=== PATIENT | female | born 1970 | race African-American/Black ===

== ENCOUNTER 2017-01-31 14:32 | Emergency (ER) | payer OTHER, MEDICAID ==
[~2017-01-31] VITALS: Ht 165.1 cm; Wt 60.0 kg
[2017-01-31] MEDS ORDERED: HYDR-4134 PO (14:42)
[2017-01-31] MEDS ORDERED: CARV6.2548 PO (14:42)
[2017-01-31] MEDS ORDERED: FURO80TA3 PO (14:42)
[2017-01-31] MEDS ORDERED: MORP15TA67 PO (14:42)
[2017-01-31] MEDS ORDERED: METO-293 PO (14:42)
[2017-01-31] MEDS ORDERED: DIPHENHYDRAMINE 50MG/ML VIAL IV ONE (16:00)
[2017-01-31] MEDS ORDERED: SODIUM CHLORIDE 0.9% 500 ML IV ONE (16:00)
[2017-01-31] MEDS ORDERED: METOCLOPRAMIDE HCL 10MG/2ML VIAL IV ONE (16:00)
[2017-01-31] MEDS ORDERED: MORPHINE SULFATE 4 MG/ML CPJ (NOT FOR IM USE) IV ONE ×2 (16:00→19:45)
[2017-01-31 16:04] LABS: CHLORIDE 105 mEq/L (98-107)
[2017-01-31 16:05] LABS: BASOPHILS % 0.9 % (0.0-2.0); HEMOGLOBIN. 13.6 g/dL (12.0-16.0); LYMPHOCYTES % 18.4 % (20.0-50.0); MEAN CORPUSCULAR HEMOGLOBIN 30.6 pg (28.0-32.0); MEAN CORPUSCULAR VOLUME 94.2 fL (81.0-99.0); MEAN PLATELET VOLUME 8.6 fl (7.4-10.4); MONOCYTES % 8.9 % (2.0-8.0); NEUTROPHILS % 68.8 % (40.0-76.0); PLATELET 162 x1000/uL (130-400); RED BLOOD CELL COUNT 4.46 mill/uL (4.2-5.4); RED CELL DISTRIBUTION WIDTH 15.6 % (11.6-14.6)
[2017-01-31 16:12] LABS: CARBON DIOXIDE 25 mEq/L (21-32)
[2017-01-31 20:42] LABS: CLARITY URINE CLOUDY (CLEAR); COLOR URINE YELLOW (YELLOW); GLUCOSE URINE TRACE (NEGATIVE); KETONES URINE TRACE (NEGATIVE); LEUKOCYTE ESTERASE URINE NEGATIVE (NEGATIVE); NITRITE URINE NEGATIVE (NEGATIVE); OCCULT BLOOD URINE 2+ (NEGATIVE); PH URINE 5.5 (4.5-8.0); PROTEIN URINE 4+ (NEGATIVE); SPECIFIC GRAVITY URINE 1.023 (1.005-1.030); UROBILINOGEN URINE 0.2 E.U./dL (0.2-1.0)
[2017-01-31] MEDS ORDERED: DIPHENHYDRAMINE 25MG CAPSULE PO ONE (22:45)
[2017-01-31 22:49] VITALS: BP 136/91
== END 2017-01-31 22:55 | disposition home or self-care (01) ==
LOC: ER 14:32
DX: T80.89XA Other complications following infusion, transfusion and therapeutic injection, initial encounter (principal); R55 Syncope and collapse; R10.9 Unspecified abdominal pain; I95.3 Hypotension of hemodialysis; E11.22 Type 2 diabetes mellitus with diabetic chronic kidney disease; N18.6 End stage renal disease; K31.84 Gastroparesis; Z99.2 Dependence on renal dialysis; Z89.512 Acquired absence of left leg below knee; Z88.6 Allergy status to analgesic agent; Z88.4 Allergy status to anesthetic agent; Z88.1 Allergy status to other antibiotic agents; Z88.8 Allergy status to other drugs, medicaments and biological substances
CPT/HCPCS: 36415; 71010; 76705; 80053; 81001; 83735; 85025; 87086; 93005; 96361; 96374; 96375; 96376; 99285; J1200; J2270; J2765; J7040; Q0163

== ENCOUNTER 2017-04-25 11:25 | Emergency (ER) | payer OTHER, MEDICAID ==
[~2017-04-25] VITALS: Ht 162.6 cm; Wt 64.0 kg
[~2017-04-25 11:25] MED LIST: CARV6.2548 PO; FURO80TA3 PO; HYDR-4134 PO; METO-293 PO; MORP15TA67 PO
[2017-04-25] MEDS ORDERED: MORPHINE SULFATE 4 MG/ML CPJ (NOT FOR IM USE) IV STA (12:18)
[2017-04-25] MEDS ORDERED: METOCLOPRAMIDE HCL 10MG/2ML VIAL IV ONE (12:30)
[2017-04-25] MEDS ORDERED: DIPHENHYDRAMINE 50MG/ML VIAL IV ONE (12:30)
[2017-04-25 12:42] LABS: BASOPHILS % 0.8 % (0.0-2.0); EOSINOPHILS % 0.9 % (0.0-5.0); HEMATOCRIT. 34.9 % (36.0-48.0); HEMOGLOBIN. 11.6 g/dL (12.0-16.0); LYMPHOCYTES % 12.1 % (20.0-50.0); MEAN CORPUSCULAR HEMOGLOBIN 31.5 pg (28.0-32.0); MEAN CORPUSCULAR VOLUME 94.6 fL (81.0-99.0); MEAN PLATELET VOLUME 7.8 fl (7.4-10.4); NEUTROPHILS % 80.2 % (40.0-76.0); PLATELET 205 x1000/uL (130-400); RED BLOOD CELL COUNT 3.69 mill/uL (4.2-5.4); RED CELL DISTRIBUTION WIDTH 16.1 % (11.6-14.6)
[2017-04-25 12:45] LABS: INR 1.5; PROTHROMBIN TIME 15.7 sec (9.4-11.6)
[2017-04-25 12:51] LABS: CARBON DIOXIDE 23 mEq/L (21-32); CHLORIDE 106 mEq/L (98-107)
[2017-04-25] MEDS ORDERED: FAMOTIDINE 20MG/2ML VIAL IV STA (12:52)
[2017-04-25 13:11] LABS: HCG SCREEN NEGATIVE
[2017-04-25 14:52] VITALS: BP 128/79
== END 2017-04-25 15:24 | disposition home or self-care (01) ==
LOC: ER 12:21
DX: R10.9 Unspecified abdominal pain (principal); R11.0 Nausea; E11.22 Type 2 diabetes mellitus with diabetic chronic kidney disease; N18.6 End stage renal disease; Z88.1 Allergy status to other antibiotic agents; Z99.2 Dependence on renal dialysis; Z98.51 Tubal ligation status; Z98.890 Other specified postprocedural states; Z88.8 Allergy status to other drugs, medicaments and biological substances
CPT/HCPCS: 36415; 74176; 80053; 83690; 84703; 85025; 85610; 96374; 96375; 99285; J1200; J2270; J2765; J3490

== ENCOUNTER 2017-07-21 15:50 | Emergency (ER) | payer OTHER, MEDICAID ==
[~2017-07-21] VITALS: Ht 162.6 cm; Wt 72.0 kg
[2017-07-21 16:40] LABS: EOSINOPHILS % 4.8 % (0.0-5.0); HEMOGLOBIN. 11.3 g/dL (12.0-16.0); LYMPHOCYTES % 14.1 % (20.0-50.0); MEAN CORPUSCULAR HEMOGLOBIN 29.1 pg (28.0-32.0); MEAN CORPUSCULAR VOLUME 90.5 fL (81.0-99.0); MEAN PLATELET VOLUME 8.7 fl (7.4-10.4); NEUTROPHILS % 76.1 % (40.0-76.0); PLATELET 276 x1000/uL (130-400); RED BLOOD CELL COUNT 3.87 mill/uL (4.2-5.4); RED CELL DISTRIBUTION WIDTH 14.5 % (11.6-14.6)
[2017-07-21 16:41] LABS: HCG SCREEN NEGATIVE
[2017-07-21 16:43] LABS: INR 1.5; PARTIAL THROMBOPLASTIN TIME 35.9 sec (23.4-31.0); PROTHROMBIN TIME 15.4 sec (9.4-11.6)
[2017-07-21 16:47] LABS: CHLORIDE 103 mEq/L (98-107)
[2017-07-21 16:49] LABS: PHOSPHORUS 2.2 mg/dL (2.5-4.9)
[2017-07-21] MEDS ORDERED: FAMOTIDINE 20MG/2ML VIAL IV STA (17:53)
[2017-07-21] MEDS ORDERED: MORPHINE SULFATE 4 MG/ML CPJ (NOT FOR IM USE) IV STA (17:53)
[2017-07-21] MEDS ORDERED: ONDANSETRON HCL 4MG/2ML VIAL IV STA (17:53)
[2017-07-21 21:28] VITALS: BP 140/60
== END 2017-07-21 21:28 | disposition short-term general hospital (02) ==
LOC: ER 15:50
DX: R10.9 Unspecified abdominal pain (principal); R11.10 Vomiting, unspecified; I13.2 Hypertensive heart and chronic kidney disease with heart failure and with stage 5 chronic kidney disease, or end stage renal disease; I50.9 Heart failure, unspecified; E11.22 Type 2 diabetes mellitus with diabetic chronic kidney disease; N18.6 End stage renal disease; N17.9 Acute kidney failure, unspecified; K86.1 Other chronic pancreatitis; D64.9 Anemia, unspecified; Z99.2 Dependence on renal dialysis; Z88.1 Allergy status to other antibiotic agents
CPT/HCPCS: 36415; 71045; 74176; 80048; 80076; 82962; 83690; 83735; 84100; 84484; 84703; 85025; 85610; 85730; 93005; 96374; 96375; 99285; J2270; J2405; J3490